=== PATIENT | male | born 1965 | race Caucasian/White ===

== ENCOUNTER 2016-09-20 10:20 | Observation (INO) | payer BC ==
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
[2016-09-20] MEDS ORDERED: NORV5 PO (10:26)
[2016-09-20] MEDS ORDERED: HCTZ25B PO (10:26)
[2016-09-20] MEDS ORDERED: TESTOST CYP100 MG/ML IM (10:26)
[2016-09-20] MEDS ORDERED: CENTRUM PO (10:27)
[2016-09-20] MEDS ORDERED: FLONASE NAS (10:27)
[2016-09-20 10:31] LABS: BASOPHILS 0.3 %; BASOPHILS ABSOLUTE 0.02 10/3/uL (0.0-0.16); EOSINOPHILS 1.4 %; ER CBC TAT 0 Hrs 05 Mins; HEMATOCRIT 46.6 % (40.0-51.0); HEMOGLOBIN 16.2 g/dL (13.6-17.8); IMMATURE GRANULOCYTES 0.7 %; IMMATURE GRANULOCYTES ABSOLUTE 0.05 10/3/uL (0.0-0.11); LYMPHOCYTES 31.5 %; LYMPHOCYTES ABSOLUTE 2.19 10/3/uL (0.67-4.30); MEAN CORPUS HGB CONC 34.8 g/dL (32.0-36.0); MEAN CORPUSCULAR HEMOGLOB 31.4 pg (26.0-34.0); MEAN CORPUSCULAR VOLUME 90.3 fL (80-100); MONOCYTES 8.2 %; MONOCYTES ABSOLUTE 0.57 10/3/uL (0.21-1.20); NEUTROPHILS 57.9 %; NEUTROPHILS ABSOLUTE 4.02 10/3/uL (2.02-8.40); PLATELET COUNT 224 10/3/uL (150-400); RED CELL COUNT 5.16 10/6/uL (4.7-6.1)
[2016-09-20 10:32] LABS: MANUAL DIFF NO %
[2016-09-20 10:38] LABS: PROTIME (NOT ORD) 13.1 SEC (12.0-14.5)
[2016-09-20 10:50] LABS: CALCIUM, SERUM 8.5 MG/DL (8.5-10.4); CHEST PAIN PROFILE TAT 0 Hrs 24 Mins; CHLORIDE, SERUM 108 MMOL/L (96-112); CO2 (CARBON DIOXIDE) 27 MMOL/L (24-34); CREATININE 1.14 MG/DL (0.70-1.30); GFR AFRICAN AMERICAN 86 ML/MIN (>=60); GFR NON AFRICAN AMERICAN 74 ML/MIN (>=60); GLUCOSE, SERUM 133 MG/DL (60-99); SODIUM, SERUM 144 MMOL/L (135-148); TROPONIN I <0.02 NG/ML (<0.05)
[2016-09-20 10:51] LABS: BUN (BLOOD UREA NITROGEN) 14 MG/DL (6-23); POTASSIUM, SERUM 3.5 MMOL/L (3.5-5.3)
[2016-09-20 14:02] LABS: TROPONIN I <0.02 NG/ML (<0.05)
[2016-09-20 14:37] LABS: CHOLESTEROL 186 MG/DL (< 200)
[2016-09-20 14:38] LABS: CHOL/HDL RATIO(NOT ORDER) 7.2 (0-5); HDL CHOLESTEROL 26 MG/DL (> 39); NON-HDL CHOLESTEROL 160 MG/DL (< 160); TRIGLYCERIDE 595 MG/DL (< 150)
[2016-09-21] MEDS ORDERED: LIPITOR40 PO (16:51)
[2016-09-21] MEDS ORDERED: COREG3 PO (16:51)
== END 2016-09-21 17:05 | disposition home or self-care (01) ==
LOC: ER 10:20 → CDU1 12:36 → CDU2 12:57 → CDU1 13:00
PROVIDERS: Clinical Nurse Specialist; Physician Assistant
DX: R07.2 Precordial pain (principal); I73.9 Peripheral vascular disease, unspecified; I10 Essential (primary) hypertension; K21.9 Gastro-esophageal reflux disease without esophagitis; E78.5 Hyperlipidemia, unspecified; G47.33 Obstructive sleep apnea (adult) (pediatric); Z90.49 Acquired absence of other specified parts of digestive tract
CPT/HCPCS: 71010; 78492; 80048; 80061; 83735; 84484; 85025; 85610; 85730; 93005; 93017; 99285; A9270-GY; A9555; C8929; G0378; J2785; Q9957